=== PATIENT | female | born 1970 | race Caucasian/White ===

== ENCOUNTER 2017-11-19 08:06 | Emergency (ER) | payer MEDICAID, SELFPAY ==
[~2017-11-19] VITALS: Ht 157.5 cm; Wt 50.2 kg
[2017-11-19] MEDS ORDERED: FLUCONAZOLE 100 MG TABLET PO ONE (08:30)
[2017-11-19] MEDS ORDERED: FLUCONAZOLE 100 MG TABLET ONE (08:32)
[2017-11-19 08:42] LABS: BASOPHILS # (AUTO) 0.08 x10^3/uL (0-0.1); BASOPHILS % (AUTO) 1 % (0-1); EOSINOPHILS # (AUTO) 0.15 x10^3/uL (0-0.4); EOSINOPHILS % (AUTO) 2 % (1-7); LYMPHOCYTES # (AUTO) 2.28 x10^3/uL (1-3.4); LYMPHOCYTES % (AUTO) 35 % (22-44); MD NO; MEAN CORPUSCULAR HEMOGLOBIN 30.3 pg (27.0-34.8); MEAN CORPUSCULAR HGB CONC 33.3 g/dL (32.4-35.8); MEAN CORPUSCULAR VOLUME 90.8 fL (80-100); MEAN PLATELET VOLUME 6.8 fL (7.4-10.4); MONOCYTES # (AUTO) 0.84 x10^3/uL (0.2-0.8); MONOCYTES % (AUTO) 13 % (2-9); NEUTROPHILS # (AUTO) 3.13 x10^3/uL (1.8-6.8); NEUTROPHILS % (AUTO) 48 % (42-75); PLATELET COUNT 489 x10^3/uL (130-400); RED BLOOD COUNT 4.55 x10^6/uL (3.82-5.3); RED CELL DISTRIBUTION WIDTH 14.6 % (9.6-15.2)
[2017-11-19 08:54] LABS: ALBUMIN 2.7 g/dL (3.4-5.0); ANION GAP 11 mmol/L (5-15); CHLORIDE 108 mmol/L (98-107); CREATININE 0.63 mg/dL (0.55-1.02)
[2017-11-19 08:58] LABS: TROPONIN I < 0.015 ng/mL (0.000-0.045)
[2017-11-19 10:18] VITALS: BP 111/75
== END 2017-11-19 11:44 | disposition home or self-care (01) ==
LOC: ED 09:06
DX: R07.89 Other chest pain (principal); L03.115 Cellulitis of right lower limb; L03.116 Cellulitis of left lower limb; F11.20 Opioid dependence, uncomplicated; F17.200 Nicotine dependence, unspecified, uncomplicated
CPT/HCPCS: 36415; 71046; 80048; 82040; 84484; 85025; 93005; 99285